=== PATIENT | female | born 1960 | race Caucasian/White ===

== ENCOUNTER 2024-02-13 06:37 | Day surgery (SDC) | payer OTHER, SELFPAY | END 2024-02-15 01:00 | LOC: GI 06:37 | PROVIDERS: ATTENDING PHYSICIAN Internal Medicine Gastroenterology | DX: K63.5 Polyp of colon (principal); K64.8 Other hemorrhoids; K57.30 Diverticulosis of large intestine without perforation or abscess without bleeding; Z86.0109 Personal history of other colon polyps | CPT/HCPCS: 45380; 88305 ==

== ENCOUNTER → 2024-03-31 10:54 | Outpatient (REF) | payer OTHER, SELFPAY | LOC: WDC 10:54 | PROVIDERS: ATTENDING PHYSICIAN Physician Assistant Medical | DX: Z12.31 Encounter for screening mammogram for malignant neoplasm of breast (principal); M84.375A Stress fracture, left foot, initial encounter for fracture | CPT/HCPCS: 77063; 77067 ==

== ENCOUNTER → 2025-04-04 09:51 | Outpatient (REF) | payer OTHER, SELFPAY | LOC: WDC 09:51 | PROVIDERS: ATTENDING PHYSICIAN Obstetrics & Gynecology; FAMILY PHYSICIAN Physician Assistant Medical | DX: Z12.31 Encounter for screening mammogram for malignant neoplasm of breast (principal) | CPT/HCPCS: 77063; 77067 ==